=== PATIENT | female | born 1995 | race Caucasian/White ===

== ENCOUNTER → 2017-02-27 | Outpatient (CLI) | payer OTHER, MEDICAID ==
[~2017-02-27] MED LIST: ACET-1600 PO; ASPI1TAB31 PO; CETI10CA PO; None at this time; ONDA4TAB10 PO; OXYC1TAB8 PO
[2017-02-27 11:04] LABS: HEMATOCRIT 39.2 % (34.6-47.8); HEMOGLOBIN 13.2 g/dL (11.7-16.4); WHITE BLOOD COUNT 5.4 x10^3/uL (3.4-10)
[2017-02-27 11:18] LABS: BLOOD UREA NITROGEN 9 mg/dL (7-18)
[2017-02-27 12:09] LABS: ASPARTATE AMINO TRANSFERASE 11 U/L (15-37)
== END | disposition home or self-care (01) ==
LOC: STAR 10:02
PROVIDERS: ATTEND Specialist
DX: Z01.818 Encounter for other preprocedural examination (principal); R19.07 Generalized intra-abdominal and pelvic swelling, mass and lump
CPT/HCPCS: 36415; 80053; 85025; 86304

== ENCOUNTER 2017-03-04 06:41 | Day surgery (SDC) | payer OTHER, MEDICAID ==
[~2017-03-04] VITALS: Ht 172.7 cm; Wt 76.4 kg
[2017-03-04] MEDS ORDERED: BUPIVACAINE/PF 0.25% ONE (06:57)
[2017-03-04] MEDS ORDERED: EPINEPHRINE 1 MG/ML, 1ML ONE (06:57)
[2017-03-04 07:19] LABS: HCG UR LOT HCG7030192
[2017-03-04] MEDS ORDERED: LACTATED RINGERS 1,000 ML IV SCH (07:19)
[2017-03-04 07:34] LABS: HCG UR OBC PASS
[2017-03-04 07:49] VITALS: BP 125/76
[2017-03-04] MEDS ORDERED: MIDAZOLAM 1 MG/ML, 2ML ONE (09:03)
[2017-03-04] MEDS ORDERED: FENTANYL PF 250 MCG/5ML ONE (09:04)
[2017-03-04] MEDS ORDERED: GLYCOPYRROLATE 0.4 MG/2 ML, 2ML ONE (10:11)
[2017-03-04] MEDS ORDERED: PROPOFOL 10 MG/ML, 20ML ONE (10:11)
[2017-03-04] MEDS ORDERED: NEOSTIGMINE 1 MG/ML, 10ML ONE (10:11)
[2017-03-04] MEDS ORDERED: SUCCINYLCHOLINE 20 MG/ML, 10ML ONE (10:11)
[2017-03-04] MEDS ORDERED: CEFOTETAN 1 GM ONE (10:11)
[2017-03-04] MEDS ORDERED: ONDANSETRON 2MG/ML, 2ML ONE (10:11)
[2017-03-04] MEDS ORDERED: ROCURONIUM 10 MG/ML ONE (10:11)
[2017-03-04] MEDS ORDERED: DEXAMETHASONE 4 MG/ML, 1ML ONE (10:11)
[2017-03-04] MEDS ORDERED: HYDROmorphone 1 MG/ML, 1ML IV PRN (11:00)
[2017-03-04] MEDS ORDERED: OXYcodone 5 MG/5 ML ORAL.SOL UDC PO PRN (11:00)
[2017-03-04] MEDS ORDERED: ONDANSETRON 2MG/ML, 2ML IVPush PRN (11:00)
[2017-03-04] MEDS ORDERED: LABETALOL 5MG/ML, 20ML IV PRN (11:00)
[2017-03-04] MEDS ORDERED: hydrALAzine 20 MG/ML, 1ML IV PRN (11:00)
[2017-03-04] MEDS ORDERED: METOCLOPRAMIDE 5 MG/ML, 2ML IV PRN (11:00)
[2017-03-04] MEDS ORDERED: ACETAMINOPHEN 325 MG TABLET PO PRN (11:00)
[2017-03-04] MEDS ORDERED: HEPARIN 1,000 UNITS/ML, 10ML IV ONE (11:07)
[2017-03-04] MEDS ORDERED: MEPERIDINE/PF 25MG/0.5ML ONE (11:42)
[2017-03-04] MEDS ORDERED: FENTANYL PF 100 MCG/2ML ONE (11:42)
[2017-03-04] MEDS ORDERED: KETOROLAC 30 MG/1 ML ONE (11:42)
[2017-03-04] MEDS ORDERED: MEPERIDINE/PF 25MG/0.5ML IVPush PRN (12:00)
[2017-03-04] MEDS ORDERED: KETOROLAC 30 MG/1 ML IV PRN (12:00)
[2017-03-04] MEDS: FENTANYL PF 100 MCG/2ML IV PRN ×3 (12:00→12:17)
[2017-03-04] MEDS ORDERED: OXYcodone 5 MG/5 ML ORAL.SOL UDC ONE (12:22)
[2017-03-04] MEDS ORDERED: MORPHINE SULFATE 4 MG/ML, 1ML ONE (12:59)
[2017-03-04] MEDS ORDERED: morphine SULFATE 10 MG/ML, 1ML IVPush ONE (13:00)
== END 2017-03-04 15:55 ==
LOC: OUT 06:41
PROVIDERS: ATTEND Obstetrics & Gynecology Gynecologic Oncology
DX: K66.8 Other specified disorders of peritoneum (principal); F41.9 Anxiety disorder, unspecified; Z98.890 Other specified postprocedural states
CPT/HCPCS: 36415; 44180; 81025; 86850; 86900; 86923; 88112; 88305; J0171; J0330; J1100; J1644; J1885; J2175; J2250; J2270; J2405; J2704; J2710; J3010; J3490; J7120; S0074

== ENCOUNTER 2017-09-25 15:18 | Emergency (ER) | payer MEDICAID ==
[~2017-09-25] VITALS: Ht 172.7 cm; Wt 86.0 kg
[2017-09-25 15:46] LABS: BASOPHILS # (AUTO) 0.04 x10^3/uL (0-0.1); BASOPHILS % (AUTO) 0 % (0-1); EOSINOPHILS # (AUTO) 0.03 x10^3/uL (0-0.4); EOSINOPHILS % (AUTO) 0 % (1-7); LYMPHOCYTES # (AUTO) 2.36 x10^3/uL (1-3.4); LYMPHOCYTES % (AUTO) 29 % (22-44); MD NO; MEAN CORPUSCULAR HEMOGLOBIN 32.5 pg (27.0-34.8); MEAN CORPUSCULAR HGB CONC 34.1 g/dL (32.4-35.8); MEAN CORPUSCULAR VOLUME 95.2 fL (80-100); MEAN PLATELET VOLUME 8.6 fL (7.4-10.4); MONOCYTES # (AUTO) 0.39 x10^3/uL (0.2-0.8); MONOCYTES % (AUTO) 5 % (2-9); NEUTROPHILS # (AUTO) 5.32 x10^3/uL (1.8-6.8); NEUTROPHILS % (AUTO) 65 % (42-75); PLATELET COUNT 221 x10^3/uL (130-400); RED BLOOD COUNT 4.15 x10^6/uL (3.82-5.3); RED CELL DISTRIBUTION WIDTH 12.8 % (9.6-15.2)
[2017-09-25 15:58] LABS: ALANINE AMINOTRANSFERASE 20 U/L (12-78); ALBUMIN 3.7 g/dL (3.4-5.0); ANION GAP 9 mmol/L (5-15); CHLORIDE 106 mmol/L (98-107)
[2017-09-25 16:15] LABS: ALKALINE PHOSPHATASE 42 U/L (45-117); BILIRUBIN,TOTAL 0.4 mg/dL (0.2-1.0); CREATININE 0.65 mg/dL (0.55-1.02); TOTAL PROTEIN 7.3 g/dL (6.4-8.2)
[2017-09-25] MEDS ORDERED: SENN1TAB67 PO (19:35)
[2017-09-25] MEDS ORDERED: PRENATALS PO (19:35)
[2017-09-25 19:46] VITALS: BP 135/75
[2017-09-25 19:54] LABS: MICROSCOPIC NOT IND
[2017-09-25 19:57] LABS: CULTURE INDICATED? NO
[2017-09-25 21:17] LABS: WET PREP WBCS FEW (FEW)
[2017-09-25 21:18] LABS: CLUE CELLS NONE SEEN (NONE SEEN)
[2017-09-25] MEDS ORDERED: AZITHROMYCIN 500 MG TABLET ONE (21:43)
[2017-09-25] MEDS ORDERED: CEFTRIAXONE 250 MG IM ONE (22:00)
[2017-09-25] MEDS ORDERED: AZITHROMYCIN 500 MG TABLET PO ONE (22:00)
== END 2017-09-25 21:54 | disposition home or self-care (01) ==
LOC: ED 20:01
DX: O26.891 Other specified pregnancy related conditions, first trimester (principal); N76.0 Acute vaginitis; B96.89 Other specified bacterial agents as the cause of diseases classified elsewhere; O21.9 Vomiting of pregnancy, unspecified; R11.0 Nausea; Z3A.01 Less than 8 weeks gestation of pregnancy
CPT/HCPCS: 36415; 76801; 80053; 81003; 84702; 85025; 87210; 87491; 87591; 87808; 96372; 99285; J0696

== ENCOUNTER 2018-10-30 18:39 | Inpatient (IN) | payer MEDICAID ==
[~2018-10-30] VITALS: Ht 172.7 cm; Wt 92.0 kg
[~2018-10-30 18:39] MED LIST changes: +PRENATALS PO; +SENN1TAB67 PO
[2018-10-30] MEDS ORDERED: DIPHENHYDRAMINE 50 MG/ML, 1ML ONE (18:57)
[2018-10-30] MEDS ORDERED: METOCLOPRAMIDE 5 MG/ML, 2ML ONE (18:57)
[2018-10-30] MEDS ORDERED: DIPHENHYDRAMINE 50 MG/ML, 1ML IVPush ONE (19:00)
[2018-10-30] MEDS ORDERED: METOCLOPRAMIDE 5 MG/ML, 2ML IVPush ONE (19:00)
[2018-10-30] MEDS ORDERED: PLEASE ENTER HEIGHT AND WEIGHT MC SCH (19:00)
[2018-10-30] MEDS ORDERED: SODIUM CHLORIDE FLUSH 10ML SYR IVF ONE (19:00)
--- NOTE | 2018-10-30 19:05 | NUR ---
Large bilious/blood tinged stool noted (patient incontinent). provider to bedside to view. Medicated per emar Report to Malik SAMSON
[2018-10-30 19:08] LABS: BASOPHILS % (AUTO) 0 % (0-1); EOSINOPHILS # (AUTO) 0.02 x10^3/uL (0-0.4); EOSINOPHILS % (AUTO) 0 % (1-7); LYMPHOCYTES # (AUTO) 0.84 x10^3/uL (1-3.4); LYMPHOCYTES % (AUTO) 8 % (22-44); MD NO; MEAN CORPUSCULAR HEMOGLOBIN 32.3 pg (27.0-34.8); MEAN CORPUSCULAR HGB CONC 33.5 g/dL (32.4-35.8); MEAN CORPUSCULAR VOLUME 96.5 fL (80-100); MEAN PLATELET VOLUME 8.2 fL (7.4-10.4); MONOCYTES % (AUTO) 4 % (2-9); NEUTROPHILS # (AUTO) 9.74 x10^3/uL (1.8-6.8); NEUTROPHILS % (AUTO) 89 % (42-75); PLATELET COUNT 228 x10^3/uL (130-400); RED BLOOD COUNT 5.16 x10^6/uL (3.82-5.3); RED CELL DISTRIBUTION WIDTH 12.8 % (9.6-15.2)
--- NOTE | 2018-10-30 19:10 | NUR ---
PT MEDICATED PER MAR
--- NOTE | 2018-10-30 19:10 | NUR ---
Bib by jose by n/v/d x 3 days. Chills, denies documented fever. EMS administered phenergan/fent im On arrival screaming in pain/diaphoretic. VSS 98.2, 70, 131/78
[2018-10-30 19:15] LABS: ALANINE AMINOTRANSFERASE 31 U/L (12-78); ALBUMIN 4.8 g/dL (3.4-5.0); ANION GAP 11 mmol/L (5-15); CALCIUM 9.8 mg/dL (8.5-10.1); CHLORIDE 111 mmol/L (98-107); CREATININE 1.05 mg/dL (0.55-1.02)
--- NOTE | 2018-10-30 19:19 | NUR ---
stool collected & walked to lab by Malik Pérez Patient wheelchaired to shower for head to toes decon d/t diarrhea
[2018-10-30 19:20] LABS: ALKALINE PHOSPHATASE 103 U/L (45-117); BILIRUBIN,TOTAL 1.1 mg/dL (0.2-1.0); TOTAL PROTEIN 8.6 g/dL (6.4-8.2)
--- NOTE | 2018-10-30 19:21 | NUR ---
REPORT OF PT FROM MALI COPPOLA AND ASSUMING CARE OF PT AT THIS TIME. PT HAD INCONTINENT EPISODE OF BLOODY, FOUL SMELLING STOOL. DR TOLEDO AT . PT STOOL SAMPLE COLLECTED AND WALKED TO LAB FOR ANALYSIS. PT WHEELED IN WHEELCHAIR TO SHOWER AT THIS TIME.
[2018-10-30] MEDS ORDERED: MORPHINE SULFATE 4 MG/ML, 1ML ONE ×2 (19:50→21:47)
[2018-10-30] MEDS ORDERED: MORPHINE SULFATE 4 MG/ML, 1ML IVPush PRN ×3 (20:00→22:00)
[2018-10-30] MEDS ORDERED: ONDANSETRON 2MG/ML, 2ML IVPush ONE (20:00)
[2018-10-30 20:07] LABS: OCCULT BLOOD POSITIVE (NEGATIVE)
[2018-10-30 20:28] LABS: CLOSTRIDIUM DIFFICILE ANTIGEN NEGATIVE; CLOSTRIDIUM DIFFICILE TOXIN NEGATIVE (Negative)
--- NOTE | 2018-10-30 20:33 | NUR ---
PT VSS AND UPDATED IN EMR. PT REPORTS FEELING 'BETTER' AT THIS TIME. WILL CONTINUE TO MONITOR. PT HAS CALL LIGHT WITHIN REACH.
[2018-10-30] MEDS ORDERED: ONDANSETRON 2MG/ML, 2ML ONE (21:11)
[2018-10-30] MEDS ORDERED: MORPHINE SULFATE 4 MG/ML, 1ML IVPush ONE ×2 (22:00)
[2018-10-30] MEDS ORDERED: OMNIPAQUE 350 MG/ML, 100ML BOTTLE ONE (22:50)
--- NOTE | 2018-10-30 22:54 | NUR ---
REPORT OF PT TO MALI JOSEPH. PT BACK FROM CT. TRANSPORT PAGED.
[2018-10-30 23:00] VITALS: BP 115/73
[2018-10-30] MEDS ORDERED: ONDANSETRON 2MG/ML, 2ML IVPush PRN (23:00)
[2018-10-30] MEDS ORDERED: SODIUM CHLORIDE 0.9% 1,000ML IVBOLUS ONE ×2 (23:00)
[2018-10-30] MEDS ORDERED: HYDR25TA11 PO (23:10)
[2018-10-30] MEDS ORDERED: ACETAMINOPHEN 500 MG TABLET PO PRN (23:30)
[2018-10-31] MEDS: FAMOTIDINE 20 MG TABLET PO SCH ×2 (00:04→08:29)
[2018-10-31] MEDS: HEPARIN 5,000 UNITS/ML, 1ML SQ SCH ×2 (00:04→08:30)
[2018-10-31] MEDS: NS + 20MEQ KCL 1,000 ML IV SCH ×4 (00:11→21:32)
[2018-10-31 00:16] LABS: ANION GAP 9 mmol/L (5-15); CALCIUM 9.2 mg/dL (8.5-10.1); CHLORIDE 108 mmol/L (98-107); CREATININE 0.91 mg/dL (0.55-1.02)
[2018-10-31] MEDS: HYDROcodone/APAP 5/325 TABLET PO PRN ×4 (00:31→21:27)
[2018-10-31 02:38] VITALS: BP 110/53
[2018-10-31 05:33] LABS: BASOPHILS # (AUTO) 0.01 x10^3/uL (0-0.1); BASOPHILS % (AUTO) 0 % (0-1); EOSINOPHILS % (AUTO) 0 % (1-7); LYMPHOCYTES # (AUTO) 1.05 x10^3/uL (1-3.4); LYMPHOCYTES % (AUTO) 21 % (22-44); MD NO; MEAN CORPUSCULAR HEMOGLOBIN 32.6 pg (27.0-34.8); MEAN CORPUSCULAR HGB CONC 33.8 g/dL (32.4-35.8); MEAN CORPUSCULAR VOLUME 96.3 fL (80-100); MEAN PLATELET VOLUME 8.3 fL (7.4-10.4); MONOCYTES # (AUTO) 0.35 x10^3/uL (0.2-0.8); MONOCYTES % (AUTO) 7 % (2-9); NEUTROPHILS # (AUTO) 3.65 x10^3/uL (1.8-6.8); NEUTROPHILS % (AUTO) 72 % (42-75); PLATELET COUNT 175 x10^3/uL (130-400); RED BLOOD COUNT 4.18 x10^6/uL (3.82-5.3); RED CELL DISTRIBUTION WIDTH 13.2 % (9.6-15.2)
[2018-10-31 06:24] LABS: AMPHETAMINE SCREEN, URINE Negative (Negative); BARBITURATE SCREEN, URINE Negative (Negative); BENZODIAZEPINE SCREEN, URINE Negative (Negative); CANNABINOID SCREEN, URINE Positive (Negative); COCAINE SCREEN, URINE Negative (Negative); METHADONE SCREEN, URINE Negative (Negative); OPIATE SCREEN, URINE Positive (Negative)
[2018-10-31 06:46] VITALS: BP 104/67
[2018-10-31 08:06] LABS: ANION GAP 8 mmol/L (5-15); CALCIUM 8.2 mg/dL (8.5-10.1); CHLORIDE 112 mmol/L (98-107); CREATININE 0.75 mg/dL (0.55-1.02)
[2018-10-31] MEDS: LORazepam 0.5MG TABLET PO PRN ×2 (11:18→21:27)
[2018-10-31 12:34] VITALS: BP 98/61
[2018-10-31 15:26] VITALS: BP 93/52
[2018-10-31] MEDS: OMEPRAZOLE 20 MG CAPSULE.DR PO SCH (15:59)
[2018-10-31 19:42] VITALS: BP 106/68
[2018-11-01 02:46] VITALS: BP 121/55
[2018-11-01] MEDS: NS + 20MEQ KCL 1,000 ML IV SCH ×2 (02:48→10:52)
[2018-11-01 05:26] LABS: BASOPHILS # (AUTO) 0.02 x10^3/uL (0-0.1); BASOPHILS % (AUTO) 0 % (0-1); EOSINOPHILS # (AUTO) 0.06 x10^3/uL (0-0.4); EOSINOPHILS % (AUTO) 1 % (1-7); LYMPHOCYTES # (AUTO) 2.36 x10^3/uL (1-3.4); LYMPHOCYTES % (AUTO) 55 % (22-44); MD NO; MEAN CORPUSCULAR HGB CONC 33.5 g/dL (32.4-35.8); MEAN CORPUSCULAR VOLUME 95.6 fL (80-100); MEAN PLATELET VOLUME 8.1 fL (7.4-10.4); MONOCYTES # (AUTO) 0.38 x10^3/uL (0.2-0.8); MONOCYTES % (AUTO) 9 % (2-9); NEUTROPHILS % (AUTO) 35 % (42-75); PLATELET COUNT 170 x10^3/uL (130-400); RED BLOOD COUNT 4.02 x10^6/uL (3.82-5.3); RED CELL DISTRIBUTION WIDTH 12.8 % (9.6-15.2)
[2018-11-01 05:38] LABS: CALCIUM 8.3 mg/dL (8.5-10.1); CHLORIDE 110 mmol/L (98-107)
[2018-11-01 05:41] LABS: ANION GAP 7 mmol/L (5-15); CREATININE 0.75 mg/dL (0.55-1.02)
[2018-11-01] MEDS: OMEPRAZOLE 20 MG CAPSULE.DR PO SCH (05:53)
[2018-11-01] MEDS: HYDROcodone/APAP 5/325 TABLET PO PRN ×2 (05:58→10:52)
[2018-11-01 07:17] VITALS: BP 112/63
[2018-11-01] MEDS ORDERED: MAGNESIUM SULFATE PMX 2GM/50ML 50 ML IV ONE (08:00)
[2018-11-01 13:54] VITALS: BP 127/74
== END 2018-11-01 14:55 | disposition home or self-care (01) | DRG 392 ==
LOC: ED 20:50 → EDIP 21:33 → 4NOR 23:02 → DCLOUNGE 11-01 14:46
PROVIDERS: ADMIT Family Medicine; ATTEND Family Medicine
DX: A09 Infectious gastroenteritis and colitis, unspecified (principal); F19.20 Other psychoactive substance dependence, uncomplicated; K92.1 Melena; E86.0 Dehydration; E87.6 Hypokalemia; F12.90 Cannabis use, unspecified, uncomplicated; F17.210 Nicotine dependence, cigarettes, uncomplicated; F41.9 Anxiety disorder, unspecified; M79.7 Fibromyalgia; N94.6 Dysmenorrhea, unspecified; I45.81 Long QT syndrome
CPT/HCPCS: 36415; 74177; 80048; 80053; 80307; 82272; 83690; 83735; 84703; 85025; 87046; 87324; 87427; 89055; 93005; 96374; 96375; 96376; G0378; J1644; J2405; J3480; Q9967; J1200; J2270; J2765; J3475; J7030; Q0177

== ENCOUNTER 2019-12-28 09:46 | Emergency (ER) | payer MEDICAID ==
[~2019-12-28] VITALS: Ht 172.7 cm; Wt 82.6 kg
[~2019-12-28 09:46] MED LIST changes: +HYDR-826 PO
--- NOTE | 2019-12-28 10:28 | NUR ---
SURFACE LAY OUT TECHNICIAN: PT IN US. WILL BE TAKEN TO 09 AFTER
[2019-12-28] MEDS ORDERED: CITA10TA4 PO (10:37)
[2019-12-28] MEDS ORDERED: BUSP10TA PO (10:37)
[2019-12-28] MEDS ORDERED: VALA500T8 PO (10:37)
[2019-12-28] MEDS ORDERED: VENL75CA6 PO (10:39)
--- NOTE | 2019-12-28 11:13 | NUR ---
Ani nogueira in ED - 12/28/19 at 1115 by YEN PT HAS NOT ARRIVED IN ED ROOM, YET
--- NOTE | 2019-12-28 11:15 | NUR ---
PT NOW IN ED ROOM 9
[2019-12-28] MEDS ORDERED: SODIUM CHLORIDE FLUSH 10ML SYR IVF ONE (11:30)
[2019-12-28] MEDS ORDERED: ONDANSETRON 2MG/ML, 2ML IVPush ONE ×2 (11:30→13:30)
[2019-12-28] MEDS ORDERED: HYDROmorphone 1 MG/ML, 1ML INJ ONE ×3 (11:38→17:51)
[2019-12-28] MEDS ORDERED: ONDANSETRON 2MG/ML, 2ML ONE ×2 (11:38→13:49)
[2019-12-28 11:49] LABS: BASOPHILS # (AUTO) 0.02 x10^3/uL (0-0.1); BASOPHILS % (AUTO) 0 % (0-1); EOSINOPHILS % (AUTO) 0 % (1-7); LYMPHOCYTES % (AUTO) 36 % (22-44); MD NO; MEAN CORPUSCULAR HEMOGLOBIN 32.4 pg (27.0-34.8); MEAN CORPUSCULAR HGB CONC 33.4 g/dL (32.4-35.8); MEAN CORPUSCULAR VOLUME 96.9 fL (80-100); MEAN PLATELET VOLUME 8.1 fL (7.4-10.4); MONOCYTES # (AUTO) 0.34 x10^3/uL (0.2-0.8); MONOCYTES % (AUTO) 4 % (2-9); NEUTROPHILS # (AUTO) 4.53 x10^3/uL (1.8-6.8); NEUTROPHILS % (AUTO) 60 % (42-75); PLATELET COUNT 230 x10^3/uL (130-400); RED BLOOD COUNT 4.59 x10^6/uL (3.82-5.3); RED CELL DISTRIBUTION WIDTH 12.3 % (9.6-15.2)
[2019-12-28] MEDS: HYDROmorphone 2 MG/ML, 1ML IVPush PRN ×2 (11:57→14:06)
--- NOTE | 2019-12-28 11:58 | NUR ---
ZOFRAN AND DILAUDID GIVEN PER EMAR.
[2019-12-28 12:01] LABS: ALANINE AMINOTRANSFERASE 22 U/L (12-78); ALBUMIN 4.5 g/dL (3.4-5.0); ANION GAP 9 mmol/L (5-15); CALCIUM 9.5 mg/dL (8.5-10.1); CHLORIDE 113 mmol/L (98-107); CREATININE 0.88 mg/dL (0.55-1.02)
[2019-12-28 12:06] LABS: ALKALINE PHOSPHATASE 56 U/L (45-117); BILIRUBIN,TOTAL 0.5 mg/dL (0.2-1.0); TOTAL PROTEIN 7.8 g/dL (6.4-8.2)
[2019-12-28 12:18] LABS: MICROSCOPIC AUTO
--- NOTE | 2019-12-28 14:06 | NUR ---
2ND DOSE OF DILAUDED GIVEN PER EMAR. Addendum: 12/28/19 at 1407 by YEN PT AWAITING CT
--- NOTE | 2019-12-28 14:47 | NUR ---
CALLED CT RE: TESTING STATUS. PER CELLULAR TOWER CLIMBER, PT IS "NEXT".
--- NOTE | 2019-12-28 14:48 | NUR ---
TO CT PER FÁTIMA
[2019-12-28] MEDS ORDERED: OMNIPAQUE 350 MG/ML, 100ML BOTTLE ONE (15:03)
--- NOTE | 2019-12-28 16:21 | NUR ---
PT EATING ICE CHIPS. AWARE OF PENDING ABD U/S.
--- NOTE | 2019-12-28 16:40 | NUR ---
TO U/S PER FÁTIMA
--- NOTE | 2019-12-28 17:44 | NUR ---
PT REPORT TO BLU GONZALEZ RN. PT CARE TRANSFERRED.
--- NOTE | 2019-12-28 18:19 | NUR ---
DR STEVENS AT DISCUSSING POC
[2019-12-28] MEDS ORDERED: HYDROmorphone 2 MG/ML, 1ML IVPush PRN (18:30)
[2019-12-28 18:35] VITALS: BP 123/84
== END 2019-12-28 19:12 | disposition home or self-care (01) ==
LOC: ED 11:32
DX: N83.291 Other ovarian cyst, right side (principal); R10.11 Right upper quadrant pain; R11.0 Nausea
CPT/HCPCS: 36415; 74177; 76700; 76830; 80053; 81001; 83690; 84703; 85025; 96374; 96375; 96376; 99285; J1170; J2405; Q9967